=== PATIENT | female | born 1950 | race Caucasian/White ===

== ENCOUNTER → 2021-09-08 14:36 | Outpatient (CLI) | payer MEDICARE, SELFPAY ==
--- NOTE | ~2021-09-08 | XR_ITS ---
EXAMINATION: XR chest 2V DATE: 09/08/2021 15:19 INDICATION: Dyspnea on exertion. TECHNIQUE: Frontal and lateral views of the chest were obtained. COMPARISON: None. FINDINGS: There is mild scarring at the lung apices. No pleural effusion or pneumothorax. The heart s ize is normal. There are bilateral breast implants. IMPRESSION: 1. Mild scarring at the lung apices. Reviewed, dictated and finalized at location B.
== END ==
DX: R06.00 Dyspnea, unspecified (principal); R91.8 Other nonspecific abnormal finding of lung field
CPT/HCPCS: 71046